=== PATIENT | female | born 1965 | race Caucasian/White ===

== ENCOUNTER 2019-02-23 13:20 | Day surgery (SDC) | payer OTHER ==
[2019-02-23] MEDS ORDERED: LIDOCAINE 2% (SDV) 5 ML INJ (14:19)
[2019-02-23] MEDS ORDERED: PROPOFOL 60 ML (14:19)
== END 2019-02-23 16:05 | disposition home or self-care (01) ==
LOC: GIL 13:20
DX: Z12.11 Encounter for screening for malignant neoplasm of colon (principal); D12.8 Benign neoplasm of rectum; K64.8 Other hemorrhoids; E78.00 Pure hypercholesterolemia, unspecified
CPT/HCPCS: 45380; 88305

== ENCOUNTER → 2019-04-07 | Outpatient (CLI) | payer OTHER ==
[2019-04-07 12:55] LABS: BLOOD UREA NITROGEN 10 mg/dl (7-20); CALCIUM 9.6 mg/dl (8.4-10.2); CARBON DIOXIDE 31 mmol/L (21-31); CHLORIDE 105 mmol/L (97-110); Estimated GFR > 60 mL/min (>60); GLUCOSE 94 mg/dl (70-220); POTASSIUM 4.5 mmol/L (3.5-5.1)
[2019-04-07 12:56] LABS: ANION GAP 7 (5-13); SODIUM 143 mmol/L (135-144)
== END | disposition home or self-care (01) ==
LOC: LAB 12:20
DX: R07.9 Chest pain, unspecified (principal); R06.02 Shortness of breath
CPT/HCPCS: 80048